=== PATIENT | male | born 1995 | race Caucasian/White ===

== ENCOUNTER 2022-08-06 17:58 | Emergency (ER) | payer SELFPAY ==
[~2022-08-06] VITALS: Ht 165.1 cm; Wt 73.0 kg
[~2022-08-06 17:58] MED LIST: ALBU0.0939
[2022-08-06 18:15] VITALS: BP 132/87
[2022-08-06 19:56] LABS: APPEARANCE,URINE CLEAR (CLEAR); BILIRUBIN,URINE NEGATIVE (NEGATIVE); BLOOD, URINE 2+ (NEGATIVE); COLOR,URINE YELLOW (YELLOW); LEUKOCYTE ESTERASE ,URINE NEGATIVE (NEGATIVE); NITRITE, URINE NEGATIVE (NEGATIVE); UGLUCOSE NEGATIVE (NEGATIVE)
[2022-08-06 20:56] LABS: BASOPHILS % (AUTO) 0.2 % (0.0-2.0); EOSINOPHILS # (AUTO) 0.1 K/uL (0-0.4); EOSINOPHILS % (AUTO) 0.9 % (0.0-4.0); HEMATOCRIT 42.7 % (36-52); HEMOGLOBIN 14.7 g/dL (12.0-18.0); LYMPHOCYTES # (AUTO) 3.6 K/uL (2.0-11.5); LYMPHOCYTES % (AUTO) 32.5 % (20.5-51.1); MEAN CORPUSCULAR HEMOGLOBIN 30 pg (27-31); MEAN CORPUSCULAR HGB CONC 34 g/dL (33-37); MEAN CORPUSCULAR VOLUME 87.8 fL (80-94); MONOCYTES # (AUTO) 0.7 K/uL (0.8-1.0); MONOCYTES % (AUTO) 6.1 % (1.7-9.3); NEUTROPHILS # (AUTO) 6.6 K/uL (1.8-7.7); NEUTROPHILS % (AUTO) 60.3 % (42.2-75.2); PLATELET COUNT (AUTO) 215 K/uL (140-450); RED BLOOD CELL COUNT(AUTO) 4.86 MIL/uL (4.20-6.10); RED CELL DISTRIBUTION WIDTH 12.9 % (11.6-13.7)
[2022-08-06 22:36] LABS: ANION GAP 14.3 (8-16); CARBON DIOXIDE 27.1 mmol/L (21-32); CREATININE 1.2 mg/dL (0.6-1.3); POTASSIUM 3.4 mmol/L (3.5-5.1)
--- NOTE | 2022-08-06 23:35 | NUR ---
called for discharge no respone Addendum: 08/06/22 at 2335 by [email or web address] *no response
--- NOTE | 2022-08-07 | NUR ---
left without dc paperwork
[2022-08-08] MEDS ORDERED: DOXY-690 PO (14:42)
--- NOTE | 2022-08-08 16:35 | NUR ---
LATE ENTRY. RECEIVED +CHLAMYDIA RESULT. FORM GIVEN TO DR LAM. RX OF DOXYCYCLINE SENT TO [facility]. SPOKE WITH PT DIRECTLY TO INFORM HIM, PT ACKNOWLEDGED. FORM SENT TO INFECTION CONTROL AND PLACED IN [facility].
== END 2022-08-07 | disposition home or self-care (01) ==
LOC: MED 17:58
DX: R31.9 Hematuria, unspecified (principal); J45.909 Unspecified asthma, uncomplicated; Z79.899 Other long term (current) drug therapy; Z91.048 Other nonmedicinal substance allergy status; Z88.8 Allergy status to other drugs, medicaments and biological substances
CPT/HCPCS: 36415; 76870; 80048; 81003; 85025; 87491; 99284; Q0092

== ENCOUNTER 2023-05-29 08:05 | Emergency (ER) | payer OTHER, BC ==
[~2023-05-29] VITALS: Ht 162.6 cm; Wt 68.0 kg
[~2023-05-29 08:05] MED LIST changes: +DOXY-690 PO
[2023-05-29 08:14] VITALS: BP 134/89; PULSE 63; RESP 20; TEMP 97.8; O2SAT 100
[2023-05-29] MEDS ORDERED: methocarbamoL 500 MG TAB PO ONE (08:15)
[2023-05-29] MEDS ORDERED: KETOROLAC 30 MG/ML VIAL IM ONE (08:15)
[2023-05-29] MEDS ORDERED: LIDOCAINE 5% 1 EA PATCH TP ONE (08:15)
[2023-05-29 08:33] VITALS: BP 134/89; PULSE 63; RESP 20; TEMP 97.8; O2SAT 100
[2023-05-29] MEDS ORDERED: LID5T TP (09:29)
[2023-05-29] MEDS ORDERED: CYCL-711 PO (09:29)
[2023-05-29] MEDS ORDERED: IBUP-2213 PO (09:29)
== END 2023-05-29 09:53 | disposition home or self-care (01) ==
LOC: MED 08:05
DX: S39.012A Strain of muscle, fascia and tendon of lower back, initial encounter (principal); J45.909 Unspecified asthma, uncomplicated; Z79.899 Other long term (current) drug therapy; V49.88XA Car occupant (driver) (passenger) injured in other specified transport accidents, initial encounter; Y93.89 Activity, other specified; Y92.89 Other specified places as the place of occurrence of the external cause; Y99.8 Other external cause status
CPT/HCPCS: 96372; 99283; J1885